=== PATIENT | female | born 1960 | race Caucasian/White ===

== ENCOUNTER 2021-05-16 14:10 | Day surgery (SDC) | payer MEDICARE, BC ==
--- NOTE | 2021-05-16 18:36 | XRAY ---
Indication: Bilateral SI joint injection. Intraoperative fluoroscopy provided for 30 seconds. 4 digital spot image submitted for interpretation demonstrates posterior needle tip projecting over the inferior left and right SI joint. Correlate with intraoperative findings/report.
--- NOTE | 2021-05-17 09:37 | XRAY ---
30 seconds fluoroscopy time in surgery for injections of both SI joints.
== END 2021-05-16 18:10 | disposition home or self-care (01) ==
LOC: SDC-PAIN 14:10
PROVIDERS: ATTEND Psychiatry & Neurology Pain Medicine
DX: M46.1 Sacroiliitis, not elsewhere classified (principal); Z79.899 Other long term (current) drug therapy
CPT/HCPCS: 72202; 77002

== ENCOUNTER 2021-06-20 14:40 | Day surgery (SDC) | payer BC, MEDICARE ==
[2021-06-20] MEDS ORDERED: BUPIVACAINE 0.5% VIAL IJ ONE (14:41)
[2021-06-20] MEDS ORDERED: Depo-Medrol 40 MG/ML IM ONE (14:41)
[2021-06-20] MEDS ORDERED: Xylocaine 1% Vial 30 ML PF IJ ONE (14:41)
--- NOTE | 2021-06-20 20:39 | XRAY ---
Indication: Right SI joint and right hip injection. Intraoperative fluoroscopy provided for 29 seconds. 3 digital spot images obtained prone submitted for interpretation demonstrates posterior needle tip projecting over the inferior right SI joint. Second needle tip lateral to the right femur neck with small amount of contrast injected for needle tip placement. Correlate with intraoperative findings/report.
--- NOTE | 2021-06-21 08:55 | XRAY ---
29 seconds fluoroscopy time in surgery for injections of the intra-articular joint space of the right hip and the right SI joint.
== END 2021-06-20 18:10 | disposition home or self-care (01) ==
LOC: SDC-PAIN 14:40
PROVIDERS: ATTEND Psychiatry & Neurology Pain Medicine
DX: M46.1 Sacroiliitis, not elsewhere classified (principal); M16.11 Unilateral primary osteoarthritis, right hip; I10 Essential (primary) hypertension; Z79.899 Other long term (current) drug therapy
CPT/HCPCS: 20610; 27096; 73502; 77002; J1030; J2001; Q9966; G0260